=== PATIENT | female | born 1960 | race Caucasian/White ===

== ENCOUNTER 2021-08-03 16:55 | Emergency (ER) | payer OTHER ==
[2021-08-03] MEDS ORDERED: PREDNISONE 20 M20 MG PO (21:58)
[2021-08-03] MEDS ORDERED: CYCLOBENZAPRINE5 MG PO (21:58)
== END 2021-08-03 22:15 | disposition home or self-care (01) ==
LOC: ER1 16:55
DX: M51.36 Other intervertebral disc degeneration, lumbar region (principal); M54.41 Lumbago with sciatica, right side; R30.0 Dysuria; F17.210 Nicotine dependence, cigarettes, uncomplicated
CPT/HCPCS: 72131; 81001; 87086; 96372; 99284; J1100; J1885

== ENCOUNTER → 2021-08-25 | Outpatient (CLI) | payer OTHER ==
[~2021-08-25] MED LIST: CYCLOBENZAPRINE5 MG PO; PREDNISONE 20 M20 MG PO
== END ==
LOC: KOH-I 16:15
DX: M47.26 Other spondylosis with radiculopathy, lumbar region (principal); M48.061 Spinal stenosis, lumbar region without neurogenic claudication
CPT/HCPCS: 72148